=== PATIENT | female | born 1940 | race Caucasian/White ===

== ENCOUNTER → 2017-07-27 | Outpatient (CLI) | payer MEDICARE, OTHER ==
[~2017-07-27] MED LIST: ACET500 PO; AEROECLIPSE II1 EACH MC; ALBU90I INH; ALBU90OI INH; ALLEGRA ALLERG180 MG; AMLO10 PO; AMLO5 PO; AZAT50; BETA.05TCA; CALC.25 PO; CEPH500; CEPH500 PO; CIPR250 PO; CLIN300 PO; CLOB.05TO; Cyclobenzaprine5 MG PO; DIAZ5 PO; DICY20 PO; DIPHTC TOP; DOCU100 PO; DOXE10 PO; DOXY100 PO; ENAHYD PO; ENAL5; FURO40 PO; GUAI120S1 PO; HYDACE5 PO; HYDHCL25 PO; HYDR1TAB94 PO; LEVFLO500 PO; LISI20; LORA10ER PO; MECL25 PO; MELA3 PO; MELATONIN5 M1; MERIBIN5 MG; METR500 PO; Melatonin5 M1 PO; Micro-K10 MEQ PO; NITR100CA PO; NYST100SU MT; Namenda10 MG; Norco 5-325 Ta1 EACH PO; OLME20; OMEP20ER; OMEP20ER PO; OXYACE5T PO; POTCHL10ER PO; PRAM.125 PO; PRAM.5 PO; PRED20 PO; Prednisone20 MG PO; Prilosec Otc20 MG PO; QUET25 PO; RAME8; RESTFUL LEGS PO; RIVA1.5 TOP; TRAM50 PO; TRAZ50 PO; UNKNOWN BP MED; VICODIN 5-3001 EACH PO; Ventolin Soln3 ML INH; Vibramycin100 MG PO; WARF1; WARF2 PO; WARF4 PO; WARF5 PO; WARF6; Zithromax250 MG PO
[2017-07-27 17:53] LABS: Albumin, Blood 3.4 g/dL (3.4-5.0); Albumin/Globulin Ratio 0.9 (0.8-1.8); Bilirubin, Total 0.3 mg/dL (0.1-1.0); Bun/Creatinine Ratio 17.4 (12.0-20.0); Calcium, Blood 8.8 mg/dL (8.5-10.1); Creatinine, Blood 1.61 mg/dL (0.40-1.00); Globulin, Blood 3.6 g/dL (2.2-4.0); Potassium, Blood 4.2 mmol/L (3.5-5.5)
== END ==
LOC: LAB EV 17:36
PROVIDERS: Internal Medicine
DX: R05 Cough (principal)
CPT/HCPCS: 80053; 83880

== ENCOUNTER 2017-11-05 17:45 | Emergency (ER) | payer OTHER ==
[~2017-11-05] VITALS: Ht 162.6 cm; Wt 98.4 kg
[~2017-11-05 17:45] MED LIST changes: -AZAT50; -CALC.25 PO; -Vibramycin100 MG PO
[2017-11-05] MEDS ORDERED: CALC.25 PO (20:45)
[2017-11-05] MEDS ORDERED: AZAT50 (20:46)
[2017-11-05] MEDS ORDERED: PRED20 PO (20:47)
[2017-11-05] MEDS ORDERED: HYDR1TAB94 PO (20:48)
[2017-11-05] MEDS ORDERED: Vibramycin100 MG PO (21:21)
== END 2017-11-05 21:36 | disposition home or self-care (01) ==
LOC: ER 17:45
DX: L03.115 Cellulitis of right lower limb (principal); L40.9 Psoriasis, unspecified; I87.2 Venous insufficiency (chronic) (peripheral); Z88.0 Allergy status to penicillin; Z88.8 Allergy status to other drugs, medicaments and biological substances; Z88.2 Allergy status to sulfonamides; Z88.1 Allergy status to other antibiotic agents; Z79.899 Other long term (current) drug therapy; Z79.01 Long term (current) use of anticoagulants; Z79.52 Long term (current) use of systemic steroids; F03.90 Unspecified dementia, unspecified severity, without behavioral disturbance, psychotic disturbance, mood disturbance, and anxiety; I10 Essential (primary) hypertension; Z87.891 Personal history of nicotine dependence
CPT/HCPCS: 73610; 99283

== ENCOUNTER 2017-12-19 16:03 | Emergency (ER) | payer OTHER ==
[~2017-12-19] VITALS: Ht 162.6 cm; Wt 97.1 kg
[~2017-12-19 16:03] MED LIST changes: +AZAT50; +CALC.25 PO; +Vibramycin100 MG PO
[2017-12-19 16:36] LABS: International Normalized Ratio 1.8; Prothrombin Time Results 19.1 Sec (9.7-11.5)
== END 2017-12-19 18:11 | disposition home or self-care (01) ==
LOC: ER 16:03
PROVIDERS: Emergency Medicine
DX: S09.90XA Unspecified injury of head, initial encounter (principal); S61.511A Laceration without foreign body of right wrist, initial encounter; S30.0XXA Contusion of lower back and pelvis, initial encounter; W01.198A Fall on same level from slipping, tripping and stumbling with subsequent striking against other object, initial encounter; Z88.0 Allergy status to penicillin; Z88.8 Allergy status to other drugs, medicaments and biological substances; Z88.2 Allergy status to sulfonamides; Z88.1 Allergy status to other antibiotic agents; Z79.899 Other long term (current) drug therapy; Z79.01 Long term (current) use of anticoagulants; Z79.52 Long term (current) use of systemic steroids; F03.90 Unspecified dementia, unspecified severity, without behavioral disturbance, psychotic disturbance, mood disturbance, and anxiety; I12.9 Hypertensive chronic kidney disease with stage 1 through stage 4 chronic kidney disease, or unspecified chronic kidney disease; N18.9 Chronic kidney disease, unspecified; Z87.891 Personal history of nicotine dependence
CPT/HCPCS: 36415; 70450; 71046; 72072; 72125; 85610; 90714; 99284

== ENCOUNTER → 2018-03-26 | Outpatient (CLI) | payer OTHER | END | disposition home or self-care (01) | LOC: LAB 09:35 → LAB SHORT 09:35 | DX: L08.0 Pyoderma (principal) | CPT/HCPCS: 87070; 87077; 87147; 87186; 87205 ==

== ENCOUNTER 2018-08-26 11:37 | Inpatient (IN) | payer OTHER ==
[~2018-08-26] VITALS: Ht 162.6 cm; Wt 89.0 kg
[~2018-08-26 11:37] MED LIST changes: -MERIBIN5 MG; +MERIBIN5 MG PO
[2018-08-26 12:42] LABS: Source, Urine Clean Catch
[2018-08-26 12:56] LABS: Appearance, Urine Hazy (Clear); Bilirubin, Urine Neg (Neg); Blood, Urine 1+ (Neg); Color, Urine Yellow (P-Yellow); Glucose Qualitative, Urine Neg (Neg); Ketones, Urine Neg (Neg); Leukocyte Esterase, Urine 2+ (Neg); Nitrite, Urine Neg (Neg); Protein, Urine 1+ (Neg); Urobilinogen, Urine NORM (Normal)
[2018-08-26 13:12] LABS: Bacteria Many /hpf; Squamous Epithelial Cells Many /hpf (Few)
[2018-08-26 13:17] LABS: Hematocrit 29.4 % (33.0-51.0); Hemoglobin 9.7 g/dL (11.5-16.0); Mean Corpuscular Volume 94 fL (80-100); Mean Platelet Volume 10.9 fL (9.1-12.4); RDW Coefficient Variation 13.2 % (11.7-14.2); RDW Standard Deviation 44.8 fL (35.1-46.3); Red Blood Cell Count 3.13 M/mm3 (3.80-5.20); White Blood Cell Count 4.02 K/mm3 (4.00-11.30)
[2018-08-26 13:29] LABS: Prothrombin Time Results 61.5 Sec (9.7-11.5)
[2018-08-26 13:36] LABS: Platelet Count 40 K/mm3 (150-400)
[2018-08-26 13:42] LABS: BASOPHILS PERCENT MAN 0 % (0-2); EOSINOPHILS ABSOLUTE MAN 0.12 K/mm3 (0.00-0.68); EOSINOPHILS PERCENT MAN 3 % (0-6); LYMPHOCYTES PERCENT MAN 5 % (21-46); MONOCYTES PERCENT MAN 0 % (4-13); NEUTROPHILS ABSOLUTE MAN 3.69 K/mm3 (1.96-9.15); SEG NEUTROPHILS PERCENT MAN 92 % (41-73); TOTAL CELLS COUNTED 100
[2018-08-26 13:47] LABS: Albumin, Blood 3.1 g/dL (3.4-5.0); Albumin/Globulin Ratio 0.8 (0.8-1.8); Bilirubin, Total 0.9 mg/dL (0.1-1.0); Bun/Creatinine Ratio 13.6 (12.0-20.0); Calcium, Blood 8.6 mg/dL (8.5-10.1); Creatinine, Blood 1.99 mg/dL (0.40-1.00); Globulin, Blood 3.8 g/dL (2.2-4.0); Potassium, Blood 3.4 mmol/L (3.5-5.5); Total Protein, Blood 6.9 g/dL (6.4-8.2)
[2018-08-26 13:55] LABS: International Normalized Ratio 6.92
[2018-08-26 16:47] LABS: Percent Saturation 39.5 % (15.0-50.0)
[2018-08-26] MEDS ORDERED: WARF4 PO (16:57)
[2018-08-26] MEDS ORDERED: Vitamin D2000 UNIT PO (17:01)
[2018-08-26] MEDS ORDERED: MEMA10 PO (17:02)
[2018-08-26] MEDS ORDERED: METTREX2.5 PO (17:04)
[2018-08-26] MEDS ORDERED: Mirapex0.5 MG PO (19:46)
[2018-08-26] MEDS ORDERED: WARF2 PO (19:56)
[2018-08-27 05:06] LABS: BASOPHILS ABSOLUTE AUTO 0.01 K/mm3 (0.00-0.23); BASOPHILS PERCENT AUTO 0 % (0-2); EOSINOPHILS ABSOLUTE AUTO 0.25 K/mm3 (0.00-0.68); EOSINOPHILS PERCENT AUTO 8 % (0-6); Hematocrit 27.2 % (33.0-51.0); Hemoglobin 8.7 g/dL (11.5-16.0); IMMATURE GRAN ABSOLUTE AUTO 0.01 K/mm3 (0.00-0.10); IMMATURE GRAN PERCENT AUTO 0 % (0-1); LYMPHOCYTES ABSOLUTE AUTO 0.41 K/mm3 (0.84-5.20); LYMPHOCYTES PERCENT AUTO 13 % (21-46); MONOCYTES ABSOLUTE AUTO 0.04 K/mm3 (0.16-1.47); MONOCYTES PERCENT AUTO 1 % (4-13); Mean Corpuscular HGB 30.9 pg (26.0-34.0); Mean Platelet Volume 10.9 fL (9.1-12.4); NEUTROPHILS ABSOLUTE AUTO 2.36 K/mm3 (1.96-9.15); NEUTROPHILS PERCENT AUTO 77 % (41-73); RDW Coefficient Variation 13.2 % (11.7-14.2); RDW Standard Deviation 46.1 fL (35.1-46.3); Red Blood Cell Count 2.82 M/mm3 (3.80-5.20); White Blood Cell Count 3.08 K/mm3 (4.00-11.30)
[2018-08-27 05:08] LABS: Mean Corpuscular Volume 97 fL (80-100)
[2018-08-27 05:09] LABS: Platelet Count 43 K/mm3 (150-400)
[2018-08-27 05:19] LABS: Prothrombin Time Results 72.8 Sec (9.7-11.5)
[2018-08-27 05:29] LABS: International Normalized Ratio 8.33
[2018-08-27 05:34] LABS: Bun/Creatinine Ratio 14.7 (12.0-20.0); Creatinine, Blood 1.7 mg/dL (0.40-1.00); Potassium, Blood 3.5 mmol/L (3.5-5.5)
--- NOTE | 2018-08-27 06:30 | NUR ---
SHIFT SUMMARY: PT A&O TO SELF, PERSON, PLACE. ABLE TO FOLLOW DIRECTIONS AND ANSWER QUESTIONS. PHOTOS DOCUMENTED ON SEVERAL LARGE BRUISES (R ARM, R MID-BACK, BILAT KNEES) AND BILATERAL ABRASIONS TO SHINS. PT REPORTS THESE WERE SUSTAINED DURING MULT FALLS AT HOME. PT DENIES PAIN, DENIES SOB. ON BASELINE O2 OF 2L VIA NC. SLEEPS THROUGH THE NIGHT. TWO CRITICAL LABS RECIEVED WITH THIS AM LABS: INR OF 8.33 AND PLATELET COUNT OF 43,000. ORDERS IN PLACE COVER THE NEEDS OF THESE CRITICAL VALUES. NO OTHER ACUTE CHANGES TO REPORT. WILL CONT TO MONITOR AND PROVIDE CARE UNTIL PRESUMED BY ONCOMING RN.
--- NOTE | 2018-08-27 17:30 | NUR ---
DRESSING CHANGE GAUZE AND COBAN DRESSING ON RIGHT LOWER LEG CHANGED BY NURSING STUDENTS RAHUL AND MARYSOL, UNDER SUPERVISION OF FAMILIA MOON.
--- NOTE | 2018-08-27 17:53 | NUR ---
SHIFT SUMMARY THE PATIENT PRESENTED THIS MORNING WITH VITALS WNL, A&O TO SELF AND WITH LUNGS THAT WERE CLEAR, BUT DIM AT THE BASES. THE PATIENT RECEIVED VITAM K TO TADAY FOR HER INR LEVEL. THE PATIENT HAD FAMILY IN THE ROOM MOST OF THE SHIFT, BUT DID RECEIVE A SHOWER AND HAD HER DRESSING ON HER LOWER LEGS CHANGED. THE PATIENT HAS BEEN UP TO HER CHAIR SEVERAL TIMES AND IS EATING DINNER THERE AT THIS TIME. WILL CONTINUE TO MONITOR.
--- NOTE | 2018-08-27 18:50 | NUR ---
Mrs. Dickinson was alone in room and sitting up in chair. She smiles easily, but had trouble tracking conversation. She appears pleasantly confused. She said little, but held my hand tightly. We prayed together for comfort and strength. I will remain available to pt and family.
[2018-08-28 05:41] LABS: BASOPHILS ABSOLUTE AUTO 0.01 K/mm3 (0.00-0.23); BASOPHILS PERCENT AUTO 0 % (0-2); EOSINOPHILS ABSOLUTE AUTO 0.25 K/mm3 (0.00-0.68); EOSINOPHILS PERCENT AUTO 9 % (0-6); Hematocrit 28.6 % (33.0-51.0); Hemoglobin 9.2 g/dL (11.5-16.0); IMMATURE GRAN ABSOLUTE AUTO 0.02 K/mm3 (0.00-0.10); IMMATURE GRAN PERCENT AUTO 1 % (0-1); LYMPHOCYTES ABSOLUTE AUTO 0.45 K/mm3 (0.84-5.20); LYMPHOCYTES PERCENT AUTO 16 % (21-46); MONOCYTES ABSOLUTE AUTO 0.04 K/mm3 (0.16-1.47); MONOCYTES PERCENT AUTO 1 % (4-13); Mean Corpuscular HGB 30.6 pg (26.0-34.0); Mean Corpuscular HGB Conc 32.2 g/dL (31.5-36.5); Mean Corpuscular Volume 95 fL (80-100); Mean Platelet Volume 10.2 fL (9.1-12.4); NEUTROPHILS ABSOLUTE AUTO 2.09 K/mm3 (1.96-9.15); NEUTROPHILS PERCENT AUTO 73 % (41-73); Platelet Count 59 K/mm3 (150-400); RDW Coefficient Variation 13.2 % (11.7-14.2); Red Blood Cell Count 3.01 M/mm3 (3.80-5.20); White Blood Cell Count 2.86 K/mm3 (4.00-11.30)
[2018-08-28 05:54] LABS: International Normalized Ratio 1.83; Prothrombin Time Results 18.4 Sec (9.7-11.5)
[2018-08-28 06:12] LABS: Albumin, Blood 2.9 g/dL (3.4-5.0); Anion Gap 8 mmol/L (6-16); Blood Urea Nitrogen 27 mg/dL (8-24); Bun/Creatinine Ratio 16.1 (12.0-20.0); CO2, Blood 28 mmol/L (21-32); Calcium, Blood 8.7 mg/dL (8.5-10.1); Chloride, Blood 107 mmol/L (98-108); Creatinine, Blood 1.68 mg/dL (0.40-1.00); Glomerular Filtration Rate 31 (60-); Glucose, Blood 93 mg/dL (70-99); Phosphorus, Blood 2.8 mg/dL (2.5-4.9); Potassium, Blood 3.7 mmol/L (3.5-5.5); Sodium, Blood 143 mmol/L (136-145)
--- NOTE | 2018-08-28 06:46 | NUR ---
SHIFT SUMMARY: NO ACUTE CHANGES THIS SHIFT. PT ABLE TO REST WELL THROUGH THE NIGHT. MAGIC MOUTHWASH ADMINISTERED 2X THIS SHIFT. MOMENTS OF BLOODY SPUTUM AND VISULAIZING CLOT AT BACK OF THROAT. AIRWAY IS PATENT STILL. IN DOWN TO 1.83 THIS AM. WILL CONTO TO MONITOR AND PROVIDE CARE UNTIL PRESUMED BY ONCOMING RN.
--- NOTE | 2018-08-28 17:41 | NUR ---
SHIFT SUMMARY THE PATIENT PRESENTED THIS AM WITH VITALS WNL, A&O TO SELF AND SURROUNDINGS, AND WITH LUNGS THAT WERE DIM THROUGHPOT. THE PATIENT'S FAMILY WAS WITH THE PATIENT MOST OF THE SHIFT. THE PATIENT IS UP TO THE BEDSIDE COMMODE WITH STAND BY ASSIST. THE PATIENT IS UP TO HER CHAIR WATCHING TV AT THIS TIME, WILL CONTINUE TO MONITOR.
[2018-08-29 05:15] LABS: BASOPHILS PERCENT AUTO 0 % (0-2); EOSINOPHILS ABSOLUTE AUTO 0.16 K/mm3 (0.00-0.68); EOSINOPHILS PERCENT AUTO 10 % (0-6); Hematocrit 26.4 % (33.0-51.0); Hemoglobin 8.5 g/dL (11.5-16.0); IMMATURE GRAN ABSOLUTE AUTO 0.01 K/mm3 (0.00-0.10); IMMATURE GRAN PERCENT AUTO 1 % (0-1); LYMPHOCYTES PERCENT AUTO 36 % (21-46); MONOCYTES ABSOLUTE AUTO 0.05 K/mm3 (0.16-1.47); MONOCYTES PERCENT AUTO 3 % (4-13); Mean Corpuscular HGB Conc 32.2 g/dL (31.5-36.5); Mean Corpuscular Volume 96 fL (80-100); Mean Platelet Volume 10.4 fL (9.1-12.4); NEUTROPHILS ABSOLUTE AUTO 0.87 K/mm3 (1.96-9.15); NEUTROPHILS PERCENT AUTO 51 % (41-73); Platelet Count 66 K/mm3 (150-400); RDW Coefficient Variation 13.1 % (11.7-14.2); RDW Standard Deviation 44.9 fL (35.1-46.3); Red Blood Cell Count 2.74 M/mm3 (3.80-5.20); White Blood Cell Count 1.69 K/mm3 (4.00-11.30)
[2018-08-29 05:52] LABS: Albumin, Blood 2.6 g/dL (3.4-5.0); Anion Gap 8 mmol/L (6-16); Blood Urea Nitrogen 25 mg/dL (8-24); Bun/Creatinine Ratio 15.2 (12.0-20.0); CO2, Blood 26 mmol/L (21-32); Calcium, Blood 8.2 mg/dL (8.5-10.1); Chloride, Blood 107 mmol/L (98-108); Creatinine, Blood 1.65 mg/dL (0.40-1.00); Glomerular Filtration Rate 32 (60-); Glucose, Blood 89 mg/dL (70-99); Phosphorus, Blood 2.3 mg/dL (2.5-4.9); Potassium, Blood 3.6 mmol/L (3.5-5.5); Sodium, Blood 141 mmol/L (136-145)
[2018-08-29 05:55] LABS: International Normalized Ratio 1.33; Prothrombin Time Results 13.7 Sec (9.7-11.5)
--- NOTE | 2018-08-29 17:17 | NUR ---
PT HAS BEEN AOX3 AND COOPERATIVE OF ALL CARE. PT DID WELL TODAY WALKING TO RESTROOM WITH WALKER AND GATEBELT ONE PERSON. PT HAS BEEN RESTING IN HER BED MOST OF THE DAY. PT DID SPEND SOMETIME TODAY UP IN HER CHAIR. WILL CONTINUE TO MONITOR.
--- NOTE | 2018-08-30 04:53 | NUR ---
SHIFT SUMMARY PT ADMITTED FOR A UTI, SINCE RESOLVED. SHE IS A&O X4, ON ROOM AIR, AND HAS NO IV ACCESS. SHE HAS A HX OF CKD, BLE EDEMA, AND FALLS. SHE HAS BRUISES TO BOTH KNEES. I DID NOTE THAT A PRESSURE ULCER WAS CHARTED BUT I COULD NOT FIND THE PHOTOGRAPH IN THE PT'S CHART. I DID PHOTOGRAPH IT AND COVER THE WOUND WITH MEPILEX. PT IS A 2-PERSON ASSIST W/FWW, TAKES HER PILLS WHOLE WITH WATER. SHE HAS BEEN RESTARTED ON COUMADIN HER INR HAS CORRECTED FROM SUPRATHERAPUTIC TO SUBTHERAPUTIC. HER LAST BM WAS 08/27. SHE IS EXPECTED TO DC W/HOME HEALTH SERVICES WITH AN INCREASE IN CAREGIVER HOURS. SHE MAY NEED TO SEE A VASCULAR SURGEON REGARDING HER ISSUES WITH DVT'S AND FREQUENT FALLS WHILE ON COUMADIN. SHE FOLLOWED INSTRUCTIONS WELL THROUGHOUT SHIFT.
[2018-08-30 05:24] LABS: BASOPHILS ABSOLUTE AUTO 0.01 K/mm3 (0.00-0.23); BASOPHILS PERCENT AUTO 1 % (0-2); EOSINOPHILS ABSOLUTE AUTO 0.16 K/mm3 (0.00-0.68); EOSINOPHILS PERCENT AUTO 10 % (0-6); Hematocrit 27.5 % (33.0-51.0); Hemoglobin 8.7 g/dL (11.5-16.0); IMMATURE GRAN ABSOLUTE AUTO 0.01 K/mm3 (0.00-0.10); IMMATURE GRAN PERCENT AUTO 1 % (0-1); LYMPHOCYTES ABSOLUTE AUTO 0.62 K/mm3 (0.84-5.20); LYMPHOCYTES PERCENT AUTO 38 % (21-46); MONOCYTES ABSOLUTE AUTO 0.08 K/mm3 (0.16-1.47); MONOCYTES PERCENT AUTO 5 % (4-13); Mean Corpuscular HGB 30.6 pg (26.0-34.0); Mean Corpuscular HGB Conc 31.6 g/dL (31.5-36.5); Mean Corpuscular Volume 97 fL (80-100); Mean Platelet Volume 9.9 fL (9.1-12.4); NEUTROPHILS ABSOLUTE AUTO 0.74 K/mm3 (1.96-9.15); NEUTROPHILS PERCENT AUTO 46 % (41-73); Platelet Count 70 K/mm3 (150-400); RDW Coefficient Variation 13.2 % (11.7-14.2); RDW Standard Deviation 45.1 fL (35.1-46.3); Red Blood Cell Count 2.84 M/mm3 (3.80-5.20); White Blood Cell Count 1.62 K/mm3 (4.00-11.30)
[2018-08-30 05:37] LABS: International Normalized Ratio 1.37; Prothrombin Time Results 14.1 Sec (9.7-11.5)
[2018-08-30 05:46] LABS: Albumin, Blood 2.9 g/dL (3.4-5.0); Anion Gap 8 mmol/L (6-16); Blood Urea Nitrogen 25 mg/dL (8-24); Bun/Creatinine Ratio 14.9 (12.0-20.0); CO2, Blood 28 mmol/L (21-32); Calcium, Blood 8.4 mg/dL (8.5-10.1); Chloride, Blood 106 mmol/L (98-108); Creatinine, Blood 1.68 mg/dL (0.40-1.00); Glomerular Filtration Rate 31 (60-); Glucose, Blood 91 mg/dL (70-99); Phosphorus, Blood 2.5 mg/dL (2.5-4.9); Potassium, Blood 3.9 mmol/L (3.5-5.5); Sodium, Blood 142 mmol/L (136-145)
--- NOTE | 2018-08-31 04:28 | NUR ---
SHIFT SUMMARY PT AND OT IS WORKING WITH THIS PT. SORES (LOOK SIMILAR TO LARGE WHITE BLISTERS) HAVE APPEARED IN HER MOUTH ON IT'S ROOF AND THE INSIDES OF THE CHEEKS. 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 SHE IS ON 2 LPM O2 VIA NC, BUT SHE PERIODICALLY REMOVES IT. IT IS IMPORTANT TO WATCH HER PT AND INR LABS, WELL HER WBC, RBC, AND PLATELET COUNT. A CONSULT NEEDS TO BE CALLED IN TO DR. LAGOS, SO THAT HE CAN EVALUATE HER LABS AND THE REASONING BEHIND THEIR VALUES. SHE HAS AN ORDER FOR NO IV ACCESS. WE HAVE BEEN PRACTICING A TWO PERSON ASSIST WITH THIS PT SHE IS A HIGH FALL RISK CAN BECOME CONFUSED. WE USE A FWW W/GAIT BELT TO TRANSFER THIS PT BETWEEN BED/CHAIR/BATHROOM.
[2018-08-31 05:10] LABS: BASOPHILS ABSOLUTE AUTO 0.01 K/mm3 (0.00-0.23); BASOPHILS PERCENT AUTO 1 % (0-2); EOSINOPHILS ABSOLUTE AUTO 0.27 K/mm3 (0.00-0.68); EOSINOPHILS PERCENT AUTO 13 % (0-6); Hematocrit 25.3 % (33.0-51.0); Hemoglobin 8.3 g/dL (11.5-16.0); IMMATURE GRAN ABSOLUTE AUTO 0.01 K/mm3 (0.00-0.10); IMMATURE GRAN PERCENT AUTO 1 % (0-1); LYMPHOCYTES ABSOLUTE AUTO 0.56 K/mm3 (0.84-5.20); LYMPHOCYTES PERCENT AUTO 27 % (21-46); MONOCYTES ABSOLUTE AUTO 0.13 K/mm3 (0.16-1.47); MONOCYTES PERCENT AUTO 6 % (4-13); Mean Corpuscular HGB 31.4 pg (26.0-34.0); Mean Corpuscular HGB Conc 32.8 g/dL (31.5-36.5); Mean Corpuscular Volume 96 fL (80-100); Mean Platelet Volume 10.1 fL (9.1-12.4); NEUTROPHILS PERCENT AUTO 53 % (41-73); Platelet Count 63 K/mm3 (150-400); RDW Coefficient Variation 13.2 % (11.7-14.2); RDW Standard Deviation 44.9 fL (35.1-46.3); Red Blood Cell Count 2.64 M/mm3 (3.80-5.20); White Blood Cell Count 2.08 K/mm3 (4.00-11.30)
[2018-08-31 05:22] LABS: International Normalized Ratio 1.65; Prothrombin Time Results 16.7 Sec (9.7-11.5)
[2018-08-31 05:53] LABS: Albumin, Blood 2.7 g/dL (3.4-5.0); Anion Gap 7 mmol/L (6-16); Blood Urea Nitrogen 25 mg/dL (8-24); Bun/Creatinine Ratio 15.7 (12.0-20.0); CO2, Blood 30 mmol/L (21-32); Calcium, Blood 8.4 mg/dL (8.5-10.1); Chloride, Blood 106 mmol/L (98-108); Creatinine, Blood 1.59 mg/dL (0.40-1.00); Glomerular Filtration Rate 33 (60-); Glucose, Blood 108 mg/dL (70-99); Phosphorus, Blood 2.5 mg/dL (2.5-4.9); Potassium, Blood 4.2 mmol/L (3.5-5.5); Sodium, Blood 143 mmol/L (136-145)
--- NOTE | 2018-08-31 06:00 | NUR ---
PT STATUS MORNING LABS SHOW THAT WBC COUNT ON IS NOW 2.08, UP FROM YESTERDAY'S 1.62 (4.00-11.30 WNL), RBC IS 2.64, DOWN FROM YESTERDAY'S 2.84 (3.80-5.20 WNL), AND PLATELET COUNT IS 63, DOWN FROM YESTERDAY 63 (150-400 WNL). ALSO IMPORTANT TO NOTE THAT HGB IS 8.3 THIS MORNING, DOWN FROM YESTERDAY'S 8.7 (11.5-16.0 WNL).
[2018-08-31] MEDS ORDERED: FOLI1 PO (09:46)
[2018-08-31] MEDS ORDERED: NYST237S MT (09:47)
--- NOTE | 2018-08-31 11:15 | NUR ---
DISCHARGE DISCHARGE MEDICATION AND INSTRUCTIONS EXPLAINED TO PATIENT AND PATIENT'S CAREGIVER. THEY STATED UNDERSTANDING. PATIENT DID NOT HAVE IV. BELONGINGS WITH PATIENT. PATIENT TRANSFERED TO PRIVATE VEHICLE VIA WHEELCHAIR.
== END 2018-08-31 11:31 | disposition home or self-care (01) | DRG 683 ==
LOC: ER 11:37 → MEDS 16:21 → ENPENDDIS 08-31 09:44 → MEDS 08-31 11:31
PROVIDERS: Emergency Medicine; Internal Medicine; ADMIT Family Medicine
DX: N17.9 Acute kidney failure, unspecified (principal); D61.818 Other pancytopenia; Z79.01 Long term (current) use of anticoagulants; F03.90 Unspecified dementia, unspecified severity, without behavioral disturbance, psychotic disturbance, mood disturbance, and anxiety; Z87.891 Personal history of nicotine dependence; Z86.718 Personal history of other venous thrombosis and embolism; E87.6 Hypokalemia; D69.6 Thrombocytopenia, unspecified; D63.1 Anemia in chronic kidney disease; R29.6 Repeated falls; E86.0 Dehydration; E53.8 Deficiency of other specified B group vitamins; I83.019 Varicose veins of right lower extremity with ulcer of unspecified site; J44.9 Chronic obstructive pulmonary disease, unspecified; N18.3 Chronic kidney disease, stage 3 (moderate); W19.XXXA Unspecified fall, initial encounter; Y92.9 Unspecified place or not applicable; T45.1X5A Adverse effect of antineoplastic and immunosuppressive drugs, initial encounter; K12.1 Other forms of stomatitis; I12.9 Hypertensive chronic kidney disease with stage 1 through stage 4 chronic kidney disease, or unspecified chronic kidney disease; S80.01XA Contusion of right knee, initial encounter; S80.02XA Contusion of left knee, initial encounter
CPT/HCPCS: 36415; 70450; 71046; 80048; 80053; 80069; 81001; 82607; 82728; 82746; 83540; 83550; 85025; 85610; 87086; 93005; 93010; 96365; 97110; 97116; 97162; 97165; 97530; 97535; 99285-25; J0696; J7030

== ENCOUNTER 2019-04-01 11:05 | Emergency (ER) | payer OTHER ==
[~2019-04-01] VITALS: Ht 162.6 cm; Wt 90.7 kg
[~2019-04-01 11:05] MED LIST changes: +FOLI1 PO; +MEMA10 PO; +METTREX2.5 PO; +NYST237S MT; +OMEPRAZOLE20 MG PO; -Prilosec Otc20 MG PO; +THERA-D2000 UNIT PO
== END 2019-04-01 13:59 | disposition home or self-care (01) ==
LOC: ER 11:05
DX: T44.7X1A Poisoning by beta-adrenoreceptor antagonists, accidental (unintentional), initial encounter (principal); T38.3X1A Poisoning by insulin and oral hypoglycemic [antidiabetic] drugs, accidental (unintentional), initial encounter; F03.90 Unspecified dementia, unspecified severity, without behavioral disturbance, psychotic disturbance, mood disturbance, and anxiety; Z86.711 Personal history of pulmonary embolism; I12.9 Hypertensive chronic kidney disease with stage 1 through stage 4 chronic kidney disease, or unspecified chronic kidney disease; N18.9 Chronic kidney disease, unspecified; F41.9 Anxiety disorder, unspecified; Z87.891 Personal history of nicotine dependence; Z88.0 Allergy status to penicillin; Z88.1 Allergy status to other antibiotic agents; Z88.2 Allergy status to sulfonamides; Z88.8 Allergy status to other drugs, medicaments and biological substances; Z79.899 Other long term (current) drug therapy; Z79.01 Long term (current) use of anticoagulants
CPT/HCPCS: 99283

== ENCOUNTER 2019-05-08 13:45 | Inpatient (IN) | payer OTHER ==
[~2019-05-08] VITALS: Ht 152.4 cm; Wt 81.9 kg
[2019-05-08 15:23] LABS: BASOPHILS ABSOLUTE AUTO 0.06 K/mm3 (0.00-0.23); BASOPHILS PERCENT AUTO 1 % (0-2); EOSINOPHILS ABSOLUTE AUTO 0.21 K/mm3 (0.00-0.68); EOSINOPHILS PERCENT AUTO 4 % (0-6); Hematocrit 39.3 % (33.0-51.0); Hemoglobin 12.6 g/dL (11.5-16.0); IMMATURE GRAN ABSOLUTE AUTO 0.01 K/mm3 (0.00-0.10); IMMATURE GRAN PERCENT AUTO 0 % (0-1); LYMPHOCYTES ABSOLUTE AUTO 0.69 K/mm3 (0.84-5.20); LYMPHOCYTES PERCENT AUTO 12 % (21-46); MONOCYTES ABSOLUTE AUTO 0.61 K/mm3 (0.16-1.47); MONOCYTES PERCENT AUTO 10 % (4-13); Mean Corpuscular HGB 31.4 pg (26.0-34.0); Mean Corpuscular HGB Conc 32.1 g/dL (31.5-36.5); Mean Corpuscular Volume 98 fL (80-100); Mean Platelet Volume 11.5 fL (9.1-12.4); NEUTROPHILS ABSOLUTE AUTO 4.42 K/mm3 (1.96-9.15); NEUTROPHILS PERCENT AUTO 74 % (41-73); Platelet Count 165 K/mm3 (150-400); RDW Coefficient Variation 12.6 % (11.7-14.2); RDW Standard Deviation 45.2 fL (35.1-46.3); Red Blood Cell Count 4.01 M/mm3 (3.80-5.20)
[2019-05-08 15:36] LABS: Albumin, Blood 3.3 g/dL (3.4-5.0); Albumin/Globulin Ratio 0.9 (0.8-1.8); Bilirubin, Total 0.5 mg/dL (0.1-1.0); Bun/Creatinine Ratio 14.4 (12.0-20.0); Calcium, Blood 9.1 mg/dL (8.5-10.1); Creatinine, Blood 1.81 mg/dL (0.40-1.00); Globulin, Blood 3.7 g/dL (2.2-4.0); Potassium, Blood 3.9 mmol/L (3.5-5.5)
[2019-05-08 15:37] LABS: International Normalized Ratio 2.91
--- NOTE | 2019-05-08 16:19 | NUR ---
Initial Visit: ED Palliative Care Consult for Advanced Care Planning. Spoke with Dr Wells and discussed case. Still waiting on futher test results but at this point Pt may not be admitted to hospital. Pt is resting on gurney upon arrival. Pt's caregiver Octavia is present during visit. Pt is A&OX2. Pt is unable to verbalize appropriate reason for hospital visit and unable to verbalize current year. Pt denies pain at this time. Octavia reports Pt lives at home with her . Octavia cares for Pt 35 1/2 hours a week. Octavia reports Pt's Jacob is currently in route from hunting and will be here in approximately 1 1/2 hours. Educated Octavia on disease process and the importance for Jacob to consider a higher level of care. Gave Octavia palliative care contact information. Instructed Octavia palliative care will attempt to visit when is present. Instructed Octavia the Dr Wells is waiting on test results before decicing plan of care of if Pt well go back home. Spoke with ED communications planner Christine and discussed case. Christine reports she will plan to visit when Pt's is present. Palliative Care will remain available.
[2019-05-08] MEDS ORDERED: Amlodipine Bes2.5 MG PO (17:48)
[2019-05-08] MEDS ORDERED: IRON150C PO (17:48)
[2019-05-08] MEDS ORDERED: AMLO10 PO (17:49)
[2019-05-08] MEDS ORDERED: Halobetasol Pro15 GM TOP (17:50)
[2019-05-08] MEDS ORDERED: LORCET 5-325 M1 EACH PO (17:50)
[2019-05-08] MEDS ORDERED: Nitrofurantoin100 M1 PO (18:18)
[2019-05-08] MEDS ORDERED: GABA100 PO (18:31)
[2019-05-08] MEDS ORDERED: Zantac150 MG PO (18:32)
[2019-05-08] MEDS ORDERED: PRAM.5 PO (23:06)
--- NOTE | 2019-05-09 04:41 | NUR ---
SHIFT SUMMARY RECEIVED REPORT FROM ADRIÁN MOON, ED. ARRIVED TO MEDICAL FLOOR @ 2150 VIA STRETCHER. FAMILY/PT ORIENTED TO ROOM AND CALL SYSTEM. INTAKE COMPLETE. PT HAS A CAREGIVE; FAMILY PLACED HER INFORMATION ON WHITEBOARD.ALERT, RESPONDS TO VERBAL STIMULI. AWARE OF AND GRANDDAUGHTER. ANSWERS QUESTIONS WITH ONE WORD ANSWERS. VSS/AFEBRILE. APPEARED TO REST MUCH OF SHIFT. NO ACUTE CHANGES OVERNIGHT. BED IN LOWEST POSITION. ALARM ON. CALL LIGHT WITHIN REACH. WCTM. REPORT TO ONCCRICKET MOON.
[2019-05-09 05:26] LABS: BASOPHILS ABSOLUTE AUTO 0.05 K/mm3 (0.00-0.23); BASOPHILS PERCENT AUTO 1 % (0-2); EOSINOPHILS ABSOLUTE AUTO 0.27 K/mm3 (0.00-0.68); EOSINOPHILS PERCENT AUTO 6 % (0-6); Hematocrit 34.7 % (33.0-51.0); IMMATURE GRAN ABSOLUTE AUTO 0.01 K/mm3 (0.00-0.10); IMMATURE GRAN PERCENT AUTO 0 % (0-1); LYMPHOCYTES ABSOLUTE AUTO 0.69 K/mm3 (0.84-5.20); LYMPHOCYTES PERCENT AUTO 16 % (21-46); MONOCYTES ABSOLUTE AUTO 0.53 K/mm3 (0.16-1.47); MONOCYTES PERCENT AUTO 12 % (4-13); Mean Corpuscular HGB 30.9 pg (26.0-34.0); Mean Corpuscular HGB Conc 31.7 g/dL (31.5-36.5); Mean Corpuscular Volume 98 fL (80-100); Mean Platelet Volume 10.8 fL (9.1-12.4); NEUTROPHILS ABSOLUTE AUTO 2.75 K/mm3 (1.96-9.15); NEUTROPHILS PERCENT AUTO 64 % (41-73); Platelet Count 141 K/mm3 (150-400); RDW Coefficient Variation 12.6 % (11.7-14.2); RDW Standard Deviation 45.4 fL (35.1-46.3); Red Blood Cell Count 3.56 M/mm3 (3.80-5.20)
[2019-05-09 05:58] LABS: Bun/Creatinine Ratio 15.6 (12.0-20.0); Calcium, Blood 9.1 mg/dL (8.5-10.1); Creatinine, Blood 1.6 mg/dL (0.40-1.00); Potassium, Blood 3.1 mmol/L (3.5-5.5)
[2019-05-09 10:31] LABS: International Normalized Ratio 3.59; Prothrombin Time Results 33.9 Sec (9.7-11.5)
[2019-05-09 10:51] LABS: Source, Urine Clean Catch
[2019-05-09 11:00] LABS: Appearance, Urine Clear (Clear); Bilirubin, Urine Neg (Neg); Blood, Urine 2+ (Neg); Color, Urine Yellow (P-Yellow); Glucose Qualitative, Urine Neg (Neg); Ketones, Urine Neg (Neg); Leukocyte Esterase, Urine 3+ (Neg); Nitrite, Urine Neg (Neg); Protein, Urine 1+ (Neg); Specific Gravity, Urine 1.025 (1.003-1.022); Urobilinogen, Urine NORM (Normal)
[2019-05-09 11:16] LABS: Bacteria Many /hpf; Squamous Epithelial Cells Mod /hpf (Few)
--- NOTE | 2019-05-09 17:35 | NUR ---
SHIFT SUMMARY PT HAD JUST GOTTEN BACK TO SLEEP PRIOR TO SHIFT REPORT THIS AM. ADMITTED FOR UTI WITH AMS. PT WAKING UP WHEN P/T CAME IN TO WORK WITH HER. P/T ABLE TO GET PT UP AND WALKING WITH GAIT BELT AND FWW. PT ABLE TO WALK IN RM AND OUT TO BARBER A SHORT DISTANCE. PT THEN SAT UP IN CHAIR FOR SEVERAL HOURS, UNTIL AFTER LUNCH. PT'S CAME IN SOON AFTER BREAKFAST AND WAS AMAZED AT HIS BEING ABLE TO SIT IN CHAIR WELL WALKING AROUND. ALSO REPORTED PT PROBABLY UNABLE TO EAT MUCH FOR BREAKFAST D/T NOT HAVING HER DENTURES. PT DID MUCH BETTER AT LUNCH. ALSO BROUGHT IN PT'S GLASSES, WHICH P/T STATED WOULD HAVE BEEN HELPFUL WHEN AMBULATING THIS AM. PT ABLE TO GET TO [facility] THIS AM TO VOID. UA OBTAINED AND SENT PER ORDERS. NO FURTHER CHANGES THRU OUT THE DAY. PT RESTING QUIETLY THIS AFTERNOON. VERY QUIET SPOKEN D/T DEMENTIA. TEARFUL THIS AM, BEFORE CAME IN, SHE THOUGHT SHE WOULDN'T BE GOING HOME. CAREGIVER ALSO CAME IN TO CHECK ON PT AND ASSIST WITH LUNCH. CALL LT IN REACH. BED ALARM ON FOR SAFETY AND CHAIR ALARM ON WHEN OOB. NEEDED TO VOID THIS AM, ASSIST
--- NOTE | 2019-05-09 18:27 | NUR ---
ASSISTED PT OOB AND SITTING UP IN CHAIR FOR DINNER. PT MUCH MORE ALERT THIS EVENING THAN THIS AM. PT ABLE TO FEED HERSELF AND DOING WELL. PT REPORTED "MUCH BETTER THAN THIS MORNING". PT APPEARS TO FEEL BETTER AND IS MUCH MORE CHEERFUL AT THIS TIME. CHAIR ALARM ON FOR SAFETY.
[2019-05-10 05:03] LABS: International Normalized Ratio 3.39; Prothrombin Time Results 32.2 Sec (9.7-11.5)
--- NOTE | 2019-05-10 05:14 | NUR ---
SHIFT SUMMARY NO ACUTE EVENTS OVERNIGHT. PT IS ONLY ORIENTED TO SELF AND FAMILY. REPORTS BEING AT A FAMILY MEMBERS HOUSE, YEAR IS "" AND MONTH IS "AUGUST". BED ALARM IS ON FOR SAFETY, HOWEVER PT SLEEPS WELL THROUGH THE NIGHT AND IS NOT IMPULSIVE. DENIES PAIN OR DISCOMFORT. PLACED ON 1L VIA NC OVERNIGHT FOR O2 SATS IN THE HIGH 80s/LOW 90s. OKAY ON RA DURING THE DAY. NO OTHER CHANGES TO REPORT. WILL CONT TO MONITOR AND PROVIDE CARE UNTIL PRESUMED BY ONCOMING RN.
[2019-05-10 05:35] LABS: Bun/Creatinine Ratio 15.6 (12.0-20.0); Calcium, Blood 9.1 mg/dL (8.5-10.1); Creatinine, Blood 1.86 mg/dL (0.40-1.00); Potassium, Blood 3.5 mmol/L (3.5-5.5)
--- NOTE | 2019-05-10 17:13 | NUR ---
SHIFT SUMMARY PT AXO TO SELF, PLACE AND FOLLOWING DIRECTIONS. PHYSICAL THERAPY EVALUATED THIS SHIFT, SEE NOTE. PT DENIES PAIN, SOB AND NV. VSS. NO ACUTE CHANGES THIS SHIFT. LOST IV ACCESS. ANTIBIOTIC CHANGED TO PO PER DR FORD. BED IN LOW POSITION, CALL LIGHT WITHIN REACH, BED ALARM ON.
--- NOTE | 2019-05-10 18:30 | NUR ---
MED, PT'S SPOUSE HAS CONCERNS ABOUT PT'S DISCHARGE PLAN. HE STATES THAT HE ONLY HAS A CAREGIVER FOR HER FOR 7 HOURS/DAY ON WEEKDAYS AND NO HELP ON WEEKENDS. HE IS AFRAID THAT PT WILL FALL AGAIN AND IF THAT HAPPENS, HE STATES THAT HE WILL HAVE TO CALL THE AMBULANCE AND BRING HER BACK TO THE HOSPITAL. HE STATES THAT HE WANTS TO HAVE HER GO TO [facility] SHORT TERM BUT DOES NOT WANT HER TO GO TO ANOTHER FACILITY. PT'S SPOUSE'S NAME IS MED WHO HAS HEALTH CONCERNS OF HIS OWN. CHARGE NURSE, WESLEY PARADA RN, NOTIFIED OF THE 'S CONCERNS
[2019-05-11 05:15] LABS: International Normalized Ratio 2.58; Prothrombin Time Results 25.1 Sec (9.7-11.5)
[2019-05-11 05:28] LABS: Bun/Creatinine Ratio 15.1 (12.0-20.0); Calcium, Blood 9.7 mg/dL (8.5-10.1); Creatinine, Blood 1.92 mg/dL (0.40-1.00); Magnesium, Blood 2.2 mg/dL (1.6-2.4); Potassium, Blood 3.6 mmol/L (3.5-5.5)
--- NOTE | 2019-05-11 06:22 | NUR ---
SHIFT SUMMARY: Pt intermittently forgetful about where she is. Required a couple reminders she is in the hospital but recalled where she was on one occasion. Forgeful. Easily redirected. Grimacing and reports pain in upper back, states pain is tolerable but would like tylenol. Effective- sleeping after administration. Slept intermittently through the night. Not communicating needs using call button, staff have been checking in on her frequently. 02 94-96% on RA. No SOB observed at rest or during t/f from recliner to bed. Sleeps with HOB elevated 30 degrees. Bed low, call button in reach, frequent rounding, and staff attempts to anticipate pt needs.
--- NOTE | 2019-05-11 17:38 | NUR ---
SHIFT SUMMARY: PT IS A/O X1-2 WITH SIGNIFICANT CONFUSION. AT TIMES SHE IS ABLE TO MAKE HER NEEDS KNOWN. PT IS CONT AT TIMES AND INC AND USES THE BEDSIDE COMMODE WHEN SHE IS AWARE OF HER NEED TO VOID. PT NEEDS SET UP AND ASSIST FOR MEALS. PT IS ABLE TO TAKE HER PILLS WHOLE WITH A SPOON AND SIPS OF WATER BUT NEEDS CUEING THAT SHE IS TAKING HER PILLS. PT WAS P TO CHAIR THIS MORNING AND HAS BEEN RESTING IN BED THIS AFTERNOON. IT WAS REPORTED BY NIGHT NURSE THAT THE IS REQUESTING ASSISTANCE WITH DC PLANNING DUE TO HIM NOT BEING ABLE TO MEET ALL OF HER CARE NEEDS AT HOME, DR FORD WAS NOTIFIED OF THIS AND A MESSAGE WAS LEFT WITH THE TO DISCUSS DC PLANS BUT HE HAS YET TO CALL BACK. PT IS RESTING IN BED AND AHS HER CALL LIGHT IN REACH.
--- NOTE | 2019-05-12 05:01 | NUR ---
SHIFT SUMMARY PT REMAINS PLEASANTLY CONFUSED. EARLY IN THE SHIFT PT WAS ABLE TO TELL ME SHE WAS IN THE HOSPITAL BUT LATER IN THE EVENING PT WAS UNAWARE OF WHERE SHE WAS. REMAINED AT BEDSIDE THIS EVENING. NO ACUTE CHANGES. VITAL SIGNS STABLE. PT MAY REQUIRE PLACEMENT, REMAINING AT BEDSIDE TO SPEAK TO DOCTOR THIS AM. WILL CONTINUE TO MONITOR.
[2019-05-12 05:57] LABS: International Normalized Ratio 2.73; Prothrombin Time Results 26.4 Sec (9.7-11.5)
--- NOTE | 2019-05-12 16:56 | NUR ---
SHIFT SUMMARY: PT IS ALERT TO HERSELF AND FOLLOWING DIRECTION AND FAMILY AT TIMES. SHE REMIANS CONFUSED AT BASELINE. MET WITH CASE MANAGEMENT TODAY ABOUT PLACEMENT AT [facility]. PT WORKED WITH PT TODAY BUT HAS CHALLENES DUE TO CONFUSION AND FOLLOWING DIRECTIONS. HOME CARE WORKER AND SPENT MOST OF THE MORNING AT THE BEDSIDE. PT IS PLEASANT AND COOPERATIVE WITH CARE BUT NEEDS CUEING AND REDIRECTION R/T CONFUSION.
--- NOTE | 2019-05-13 04:29 | NUR ---
SHIFT SUMMARY: 78 Y/O FEMALE RESTED COMFORTABLY ALL SHIFT, PT AT BEGINNING OF SHIFT WAS ASSISTED BACK TO BED X 2 ASSIST, MUCH DIFFICULTY COMING TO STANDING POSITION AND PIVOTING TO BED, REQUIRED ALOT REDIRECTION PATIENT VERY CONFUSED AND ALERT TO PERSON ONLY, TOOK ALL MEDICATIONS WITH ASSISTANCE WITH DRINKING WATER FROM THIS NURSE HOLDING GLASS AND INSTRUCTING TO SUCK ON STRAW FOR WATER, NO PAIN OR NAUSEA NOTED, BED ALARM APPLIED, BED LOW POSITION, CALL LIGHT AT SIDE.
[2019-05-13 05:46] LABS: International Normalized Ratio 2.72; Prothrombin Time Results 26.3 Sec (9.7-11.5)
[2019-05-13] MEDS ORDERED: CEPH500 PO (10:57)
[2019-05-13] MEDS ORDERED: Vsl#3 Capsule1 EACH PO (10:58)
--- NOTE | 2019-05-13 14:34 | NUR ---
DISCHARGE SUMMARY PT DISCHARGED TO HOME. PT LEFT ROOM VIA WHEELCHAIR WITH TRANSPORTER ESCORT AT 1430. BELONGINGS RETURNED AND NO IV IN PLACE AT TIME OF DC. PT'S SPOUSE CALLED AND DISCHARGE INSTRUCTIONS COMPLETED OVER THE PHONE. HE AGREES TO TAKE PATIENT TO DR LOPEZ ON 05/11/19 AT 1030. SPOUSE ENCOURAGED TO CALL MEDICAL FLOOR IF HE HAS QUESTIONS REGARDING DC.
== END 2019-05-13 14:30 | disposition home or self-care (01) | DRG 189 ==
LOC: ER 13:45 → MEDS 22:05 → ENPENDDIS 05-13 10:00 → MEDS 05-13 14:30
PROVIDERS: Emergency Medicine; Internal Medicine; Nurse Practitioner Acute Care; Pharmacist; ADMIT Internal Medicine
DX: J96.01 Acute respiratory failure with hypoxia (principal); G92 Toxic encephalopathy; N39.0 Urinary tract infection, site not specified; J98.11 Atelectasis; N18.4 Chronic kidney disease, stage 4 (severe); W19.XXXA Unspecified fall, initial encounter; E86.0 Dehydration; J44.9 Chronic obstructive pulmonary disease, unspecified; G30.9 Alzheimer's disease, unspecified; F02.80 Dementia in other diseases classified elsewhere, unspecified severity, without behavioral disturbance, psychotic disturbance, mood disturbance, and anxiety; I12.9 Hypertensive chronic kidney disease with stage 1 through stage 4 chronic kidney disease, or unspecified chronic kidney disease; R29.6 Repeated falls; B95.61 Methicillin susceptible Staphylococcus aureus infection as the cause of diseases classified elsewhere; D69.6 Thrombocytopenia, unspecified; D63.1 Anemia in chronic kidney disease; F44.4 Conversion disorder with motor symptom or deficit; Z86.718 Personal history of other venous thrombosis and embolism; Z87.891 Personal history of nicotine dependence; Z88.0 Allergy status to penicillin; Z88.2 Allergy status to sulfonamides; Z88.8 Allergy status to other drugs, medicaments and biological substances; Z79.01 Long term (current) use of anticoagulants; Z79.899 Other long term (current) drug therapy
CPT/HCPCS: 36415; 70450; 71046; 80048; 80053; 81001; 83735; 84145; 85025; 85610; 87077; 87086; 87147; 87185; 87186; 93005; 93010; 94760; 97116; 97162; 97165; 97530; 97535; 99285-25; A9270; J1956; J7050

== ENCOUNTER 2019-08-28 19:09 | Emergency (ER) | payer OTHER ==
[~2019-08-28] VITALS: Ht 157.5 cm; Wt 77.1 kg
[~2019-08-28 19:09] MED LIST changes: +AMLODIPINE BES2.5 MG PO; +Amlodipine Bes2.5 MG PO; +GABA100 PO; +Halobetasol Pro15 GM TOP; +IRON150C PO; +LORCET 5-325 M1 EACH PO; +Nitrofurantoin100 M1 PO; +Vsl#3 Capsule1 EACH PO; +Zantac150 MG PO
[2019-08-28] MEDS ORDERED: KLOR-CON M1010 MEQ PO (19:54)
[2019-08-28] MEDS ORDERED: FURO40 PO (19:55)
[2019-08-28] MEDS ORDERED: PRAM.5 PO (19:55)
[2019-08-28] MEDS ORDERED: BIOTIN2500 MCG PO (19:55)
[2019-08-28] MEDS ORDERED: VITAMIN D32000 UNI3 PO (19:56)
[2019-08-28] MEDS ORDERED: OMEPRAZOLE20 MG PO (19:57)
[2019-08-28 21:10] LABS: BASOPHILS ABSOLUTE AUTO 0.04 K/mm3 (0.00-0.23); BASOPHILS PERCENT AUTO 0 % (0-2); EOSINOPHILS ABSOLUTE AUTO 0.18 K/mm3 (0.00-0.68); EOSINOPHILS PERCENT AUTO 2 % (0-6); Hematocrit 38.1 % (33.0-51.0); IMMATURE GRAN ABSOLUTE AUTO 0.04 K/mm3 (0.00-0.10); IMMATURE GRAN PERCENT AUTO 0 % (0-1); LYMPHOCYTES PERCENT AUTO 4 % (21-46); MONOCYTES ABSOLUTE AUTO 0.65 K/mm3 (0.16-1.47); MONOCYTES PERCENT AUTO 7 % (4-13); Mean Corpuscular HGB 31.1 pg (26.0-34.0); Mean Corpuscular HGB Conc 31.5 g/dL (31.5-36.5); Mean Corpuscular Volume 99 fL (80-100); Mean Platelet Volume 10.4 fL (9.1-12.4); NEUTROPHILS ABSOLUTE AUTO 7.69 K/mm3 (1.96-9.15); NEUTROPHILS PERCENT AUTO 86 % (41-73); Platelet Count 164 K/mm3 (150-400); RDW Coefficient Variation 12.9 % (11.7-14.2); RDW Standard Deviation 46.2 fL (35.1-46.3); Red Blood Cell Count 3.86 M/mm3 (3.80-5.20)
[2019-08-28 21:22] LABS: Source, Urine Catheter
[2019-08-28 21:25] LABS: International Normalized Ratio 1.23
[2019-08-28 21:28] LABS: Bilirubin, Urine Neg (Neg); Blood, Urine 2+ (Neg); Glucose Qualitative, Urine Neg (Neg); Ketones, Urine 1+ (Neg); Leukocyte Esterase, Urine Neg (Neg); Nitrite, Urine Neg (Neg); Protein, Urine 1+ (Neg); Urobilinogen, Urine NORM (Normal)
[2019-08-28 21:29] LABS: Albumin, Blood 2.9 g/dL (3.4-5.0); Albumin/Globulin Ratio 0.7 (0.8-1.8); Bilirubin, Total 0.7 mg/dL (0.1-1.0); Bun/Creatinine Ratio 12.7 (12.0-20.0); Calcium, Blood 9.2 mg/dL (8.5-10.1); Creatinine, Blood 1.89 mg/dL (0.40-1.00); Globulin, Blood 4.3 g/dL (2.2-4.0); Potassium, Blood 3.7 mmol/L (3.5-5.5); Total Protein, Blood 7.2 g/dL (6.4-8.2)
[2019-08-28 21:30] LABS: Appearance, Urine Hazy (Clear); Color, Urine Yellow (P-Yellow)
[2019-08-28 21:38] LABS: Bacteria Few /hpf; Mucus Light (0-Heavy); Red Blood Cells, Urine 0-2 /hpf (0-2); Squamous Epithelial Cells Rare /hpf (Few); White Blood Cells, Urine 0-2 /hpf (0-5)
== END 2019-08-28 22:58 | disposition home or self-care (01) ==
LOC: ER 19:09
PROVIDERS: Emergency Medicine
DX: S09.90XA Unspecified injury of head, initial encounter (principal); I12.9 Hypertensive chronic kidney disease with stage 1 through stage 4 chronic kidney disease, or unspecified chronic kidney disease; N18.9 Chronic kidney disease, unspecified; F03.90 Unspecified dementia, unspecified severity, without behavioral disturbance, psychotic disturbance, mood disturbance, and anxiety; Z88.0 Allergy status to penicillin; Z88.2 Allergy status to sulfonamides; Z88.1 Allergy status to other antibiotic agents; Z79.899 Other long term (current) drug therapy; Z79.01 Long term (current) use of anticoagulants; M19.90 Unspecified osteoarthritis, unspecified site; Z87.891 Personal history of nicotine dependence; W19.XXXA Unspecified fall, initial encounter
CPT/HCPCS: 36415; 51701; 70450; 71045; 80053; 81001; 85025; 85610; 85730; 99284-25

== ENCOUNTER 2019-08-30 13:30 | Inpatient (IN) | payer OTHER ==
[~2019-08-30] VITALS: Ht 162.6 cm; Wt 65.8 kg
[~2019-08-30 13:30] MED LIST changes: +BIOTIN2500 MCG PO; +KLOR-CON M1010 MEQ PO; +VITAMIN D32000 UNI3 PO
[2019-08-30] MEDS ORDERED: FERSU300 PO (14:12)
[2019-08-30 14:46] LABS: BASOPHILS ABSOLUTE AUTO 0.03 K/mm3 (0.00-0.23); BASOPHILS PERCENT AUTO 0 % (0-2); EOSINOPHILS ABSOLUTE AUTO 0.01 K/mm3 (0.00-0.68); EOSINOPHILS PERCENT AUTO 0 % (0-6); Hematocrit 39.7 % (33.0-51.0); Hemoglobin 12.7 g/dL (11.5-16.0); IMMATURE GRAN ABSOLUTE AUTO 0.11 K/mm3 (0.00-0.10); IMMATURE GRAN PERCENT AUTO 1 % (0-1); LYMPHOCYTES PERCENT AUTO 5 % (21-46); MONOCYTES ABSOLUTE AUTO 0.84 K/mm3 (0.16-1.47); MONOCYTES PERCENT AUTO 6 % (4-13); Mean Corpuscular HGB 31.1 pg (26.0-34.0); Mean Corpuscular Volume 97 fL (80-100); Mean Platelet Volume 10.6 fL (9.1-12.4); NEUTROPHILS ABSOLUTE AUTO 11.83 K/mm3 (1.96-9.15); NEUTROPHILS PERCENT AUTO 88 % (41-73); Platelet Count 144 K/mm3 (150-400); RDW Coefficient Variation 12.4 % (11.7-14.2); RDW Standard Deviation 44.6 fL (35.1-46.3); Red Blood Cell Count 4.09 M/mm3 (3.80-5.20); White Blood Cell Count 13.52 K/mm3 (4.00-11.30)
[2019-08-30 15:19] LABS: Alanine Aminotransfer (ALT/SGP 10 U/L (12-78); Albumin, Blood 2.7 g/dL (3.4-5.0); Albumin/Globulin Ratio 0.6 (0.8-1.8); Alk Phos 83 U/L (50-136); Anion Gap 11 mmol/L (6-16); Aspartate Aminotrans (AST/SGOT 12 U/L (12-37); Bilirubin, Total 1.2 mg/dL (0.1-1.0); Blood Urea Nitrogen 23 mg/dL (8-24); Bun/Creatinine Ratio 13.8 (12.0-20.0); CO2, Blood 25 mmol/L (21-32); Calcium, Blood 9.2 mg/dL (8.5-10.1); Chloride, Blood 104 mmol/L (98-108); Creatinine, Blood 1.67 mg/dL (0.40-1.00); Globulin, Blood 4.7 g/dL (2.2-4.0); Glomerular Filtration Rate 32 (60-); Glucose, Blood 104 mg/dL (70-99); Potassium, Blood 3.7 mmol/L (3.5-5.5); Sodium, Blood 140 mmol/L (136-145); Total Protein, Blood 7.4 g/dL (6.4-8.2); Troponin I <0.015 ng/mL (0.000-0.040)
[2019-08-30 16:55] LABS: Source, Urine Catheter
[2019-08-30 16:58] LABS: Blood, Urine 4+ (Neg); Glucose Qualitative, Urine Neg (Neg); Ketones, Urine 2+ (Neg); Leukocyte Esterase, Urine 2+ (Neg); Nitrite, Urine Pos (Neg); Protein, Urine 2+ (Neg); Urobilinogen, Urine 2+ (Normal)
[2019-08-30 17:04] LABS: Appearance, Urine Hazy (Clear); Bilirubin, Urine 1+ (Neg); Color, Urine Yellow (P-Yellow)
[2019-08-30 17:08] LABS: Amorphous Mod (0-Heavy); Bacteria Many /hpf; Mucus Light (0-Heavy); Squamous Epithelial Cells Rare /hpf (Few)
[2019-08-30] MEDS ORDERED: ALBU2.5V5 NEB (17:28)
[2019-08-30] MEDS ORDERED: Halobetasol Pro15 GM TOP (18:04)
[2019-08-30 18:52] LABS: International Normalized Ratio 1.97; Prothrombin Time Results 20.3 Sec (9.7-11.5)
--- NOTE | 2019-08-31 01:36 | NUR ---
78 yr old female admitted to the floor from the ED with Dx of Sepsis, UTI and SOB, especially with exertion. ED RN reported pt had fallen at home and was having difficulties ambulating and that her family also noted a change in mental abilities. IV antibiotics infusing as per MAR. Unable to complete her med history as she is a poor historian. HOB elevated. Currently resting quietly. NPO. Call light in reach.
[2019-08-31 06:02] LABS: BASOPHILS ABSOLUTE AUTO 0.03 K/mm3 (0.00-0.23); BASOPHILS PERCENT AUTO 0 % (0-2); EOSINOPHILS PERCENT AUTO 0 % (0-6); Hematocrit 36.2 % (33.0-51.0); Hemoglobin 11.5 g/dL (11.5-16.0); IMMATURE GRAN ABSOLUTE AUTO 0.17 K/mm3 (0.00-0.10); IMMATURE GRAN PERCENT AUTO 1 % (0-1); LYMPHOCYTES ABSOLUTE AUTO 0.21 K/mm3 (0.84-5.20); LYMPHOCYTES PERCENT AUTO 2 % (21-46); MONOCYTES ABSOLUTE AUTO 0.93 K/mm3 (0.16-1.47); MONOCYTES PERCENT AUTO 7 % (4-13); Mean Corpuscular HGB 31.3 pg (26.0-34.0); Mean Corpuscular HGB Conc 31.8 g/dL (31.5-36.5); Mean Corpuscular Volume 98 fL (80-100); Mean Platelet Volume 10.7 fL (9.1-12.4); NEUTROPHILS ABSOLUTE AUTO 13.05 K/mm3 (1.96-9.15); NEUTROPHILS PERCENT AUTO 91 % (41-73); Platelet Count 160 K/mm3 (150-400); RDW Coefficient Variation 12.7 % (11.7-14.2); RDW Standard Deviation 46.2 fL (35.1-46.3); Red Blood Cell Count 3.68 M/mm3 (3.80-5.20); White Blood Cell Count 14.39 K/mm3 (4.00-11.30)
[2019-08-31 06:17] LABS: International Normalized Ratio 2.43
[2019-08-31 06:29] LABS: Alanine Aminotransfer (ALT/SGP <6 U/L (12-78); Albumin, Blood 2.1 g/dL (3.4-5.0); Albumin/Globulin Ratio 0.5 (0.8-1.8); Alk Phos 78 U/L (50-136); Anion Gap 6 mmol/L (6-16); Aspartate Aminotrans (AST/SGOT 11 U/L (12-37); Blood Urea Nitrogen 24 mg/dL (8-24); Bun/Creatinine Ratio 15.7 (12.0-20.0); CO2, Blood 28 mmol/L (21-32); Calcium, Blood 8.7 mg/dL (8.5-10.1); Chloride, Blood 107 mmol/L (98-108); Creatinine, Blood 1.53 mg/dL (0.40-1.00); Globulin, Blood 4.4 g/dL (2.2-4.0); Glomerular Filtration Rate 35 (60-); Glucose, Blood 115 mg/dL (70-99); Potassium, Blood 4.4 mmol/L (3.5-5.5); Sodium, Blood 141 mmol/L (136-145); Total Protein, Blood 6.5 g/dL (6.4-8.2)
[2019-08-31 06:45] LABS: Prothrombin Time Results 24.7 Sec (9.7-11.5)
--- NOTE | 2019-08-31 17:15 | NUR ---
SHIFT SUMMARY- PT RESPONDS TO VERBAL STIMULI. HER SPEECH IS QUIET AND DIFFICULT TO UNDERSTAND. HER AND SISTER WERE AT BEDSIDE INTERMITENTLY THROUGHOUT THIS SHIFT. PT SLEPT MUCH OF THIS SHIFT. PROVIDER DISCUSSED CODE STATUS WITH THE FAMILY AND SHE WAS CHANGED TO DNR. PALATIVE CARE CONSULT IN PLACE THEY WILL COME TOMORROW AFTER SPEECH THERAPY CONSULT. PT LUNG SOUNDS ARE CORSE WITH CRACKLES, RT IS PROVIDING TREATMENT. PT IS NPO EXCEPT FOR MEDICATION. SHE HAS DIFFICULTY SWALLOWING THE PILLS ON APPLESAUSE. PROVIDED ORAL CARE.
--- NOTE | 2019-08-31 20:45 | NUR ---
On med tele, teletypesetter heightened that pt went up to the 120's svt, and is remaining at that. call placed to MD internal communications intern, message left for call back.
--- NOTE | 2019-09-01 01:12 | NUR ---
NOTED HEART RATE HAD INCREAED INTO THE 120'S - SEE PREVIOUS NOTE PER SALES LEAD GENERATOR INFO. PT NPO AND HAD NO MAINTENANCE IVF INFUSING. LUNG SOUNDS DIMINISHED BUT NO NOTE CRACKLES. INCONT OF URINE X 3 THIS SHIFT OF THIS WRITING. CALL PLACED TO BULK TRUCK DRIVER MD, ORDERS FOR LR AT 100 ML/HR OBTAINED. ORAL CARE DONE INTERMITTENTLY THIS SHIFT. CALL LIGHT IN REACH. O2 PER NC. HOB ELEVATED.
--- NOTE | 2019-09-01 03:28 | NUR ---
PT RESTING QUIETLY WITH OCCASIONAL COUGH. IVF OF LR INFUSING AT 100 ML/HR PER MD ORDERS. HR DOWN TO 111 - SEE DOC FLOW SHEETS FOR DETAILS. PT INCONT OF URINE EARLIER, WHEN ASKED, STATED SHE FELT BETTER. BELLE CONTINUE TO MONITOR. CALL LIGHT IN REACH.
[2019-09-01 06:13] LABS: Hematocrit 33.1 % (33.0-51.0); Hemoglobin 10.5 g/dL (11.5-16.0); Mean Corpuscular HGB Conc 31.7 g/dL (31.5-36.5); Mean Corpuscular Volume 98 fL (80-100); Platelet Count 154 K/mm3 (150-400); RDW Coefficient Variation 13.1 % (11.7-14.2); RDW Standard Deviation 47.3 fL (35.1-46.3); Red Blood Cell Count 3.39 M/mm3 (3.80-5.20); White Blood Cell Count 13.47 K/mm3 (4.00-11.30)
[2019-09-01 06:32] LABS: Albumin, Blood 1.8 g/dL (3.4-5.0); Anion Gap 7 mmol/L (6-16); Blood Urea Nitrogen 28 mg/dL (8-24); Bun/Creatinine Ratio 18.5 (12.0-20.0); CO2, Blood 25 mmol/L (21-32); Calcium, Blood 8.5 mg/dL (8.5-10.1); Chloride, Blood 114 mmol/L (98-108); Creatinine, Blood 1.51 mg/dL (0.40-1.00); Glomerular Filtration Rate 35 (60-); Glucose, Blood 120 mg/dL (70-99); Phosphorus, Blood 1.9 mg/dL (2.5-4.9); Potassium, Blood 3.4 mmol/L (3.5-5.5); Sodium, Blood 146 mmol/L (136-145)
[2019-09-01 07:05] LABS: BAND PERCENT MAN 20 % (0-8); BASOPHILS PERCENT MAN 0 % (0-2); EOSINOPHILS PERCENT MAN 0 % (0-6); LYMPHOCYTES ABSOLUTE MAN 0.26 K/mm3 (0.84-5.20); LYMPHOCYTES PERCENT MAN 2 % (21-46); MONOCYTES ABSOLUTE MAN 0.26 K/mm3 (0.16-1.47); MONOCYTES PERCENT MAN 2 % (4-13); NEUTROPHILS ABSOLUTE MAN 12.93 K/mm3 (1.96-9.15); SEG NEUTROPHILS PERCENT MAN 76 % (41-73); TOTAL CELLS COUNTED 100
[2019-09-01 07:12] LABS: Prothrombin Time Results 49.2 Sec (9.7-11.5)
[2019-09-01 07:24] LABS: International Normalized Ratio 5.04
[2019-09-01] MEDS ORDERED: GABA100 PO (13:30)
[2019-09-01] MEDS ORDERED: BENZ100A PO (13:30)
--- NOTE | 2019-09-01 18:32 | NUR ---
SHIFT SUMMARY. PT LETHARGIC THIS AM, BECOMING MORE ALERT AFTER WORKING WITH PHYSICAL THERAPY. PT ABLE TO PARTICIPATE IN ST EVAL, PT ATE LUNCH WITH FEEDING ASSISTANCE. PT ORIENTATED TO FAMILY, HX DEMENTIA. PT DENIES PAIN, N/V. PT SOB WITH EXERTION. CONTINUES WITH 2L O2 NC. FAMILY AT BEDSIDE MOST OF THE SHIFT, AGREE WITH PLAN OF CARE. NO NEW CHANGES OR CONCERNS.
--- NOTE | 2019-09-02 02:16 | NUR ---
SOME RESTLESSNESS NOTED AT INTERVALS, UPON ENTERING ROOM, NOTED PT TALKING TO SELF. WHEN ASKED IF SHE WAS OK, SHE SAID YES. SEEMED MORE ATTENTIVE TO QUESTIONS THIS SHIFT COMPARED TO THAT OF 24 HRS PREVIOUS. IVF OF D5W INFUSING AT 75 ML/HR. INCONT OF URINE AND WAS CHANGED. SOMEWHAT RESISTANT TO BEING REPOSITIONED. RAILS UP X 3. CALL LIGHT IN REACH.
[2019-09-02 05:49] LABS: BASOPHILS ABSOLUTE AUTO 0.06 K/mm3 (0.00-0.23); BASOPHILS PERCENT AUTO 0 % (0-2); EOSINOPHILS ABSOLUTE AUTO 0.01 K/mm3 (0.00-0.68); EOSINOPHILS PERCENT AUTO 0 % (0-6); Hemoglobin 9.9 g/dL (11.5-16.0); IMMATURE GRAN ABSOLUTE AUTO 0.12 K/mm3 (0.00-0.10); IMMATURE GRAN PERCENT AUTO 1 % (0-1); LYMPHOCYTES ABSOLUTE AUTO 0.24 K/mm3 (0.84-5.20); LYMPHOCYTES PERCENT AUTO 1 % (21-46); MONOCYTES ABSOLUTE AUTO 0.57 K/mm3 (0.16-1.47); MONOCYTES PERCENT AUTO 3 % (4-13); Mean Corpuscular HGB 30.9 pg (26.0-34.0); Mean Corpuscular HGB Conc 31.9 g/dL (31.5-36.5); Mean Corpuscular Volume 97 fL (80-100); Mean Platelet Volume 11.2 fL (9.1-12.4); NEUTROPHILS ABSOLUTE AUTO 15.99 K/mm3 (1.96-9.15); NEUTROPHILS PERCENT AUTO 94 % (41-73); Platelet Count 166 K/mm3 (150-400); RDW Coefficient Variation 13.5 % (11.7-14.2); RDW Standard Deviation 48.5 fL (35.1-46.3); White Blood Cell Count 16.99 K/mm3 (4.00-11.30)
[2019-09-02 06:18] LABS: Magnesium, Blood 1.9 mg/dL (1.6-2.4)
[2019-09-02 06:23] LABS: Albumin, Blood 1.6 g/dL (3.4-5.0); Anion Gap 7 mmol/L (6-16); Blood Urea Nitrogen 30 mg/dL (8-24); Bun/Creatinine Ratio 19.4 (12.0-20.0); CO2, Blood 25 mmol/L (21-32); Calcium, Blood 8.4 mg/dL (8.5-10.1); Chloride, Blood 112 mmol/L (98-108); Creatinine, Blood 1.55 mg/dL (0.40-1.00); Glomerular Filtration Rate 34 (60-); Glucose, Blood 122 mg/dL (70-99); Phosphorus, Blood 2.4 mg/dL (2.5-4.9); Potassium, Blood 3.2 mmol/L (3.5-5.5); Sodium, Blood 144 mmol/L (136-145)
[2019-09-02 06:33] LABS: International Normalized Ratio 5.89
--- NOTE | 2019-09-02 06:42 | NUR ---
LAB CALLED WITH INR 5.89. CALL PLACED TO , ORDERS TO HOLD COUMADIN. PHARMACY NOTIFIED.
--- NOTE | 2019-09-02 15:28 | NUR ---
Met with patients and her long time caregiver. Review of pt decline in swallow and mentation and prognosis pt has a FAST score of 7e. We reviewed hospice care, aspiration and prognosis and suffering. Family is understanding of the need for hospice. They will speak with family and meet tomorrow. She is a DNR and they will do new polst tomorrow if hospice chosen.
--- NOTE | 2019-09-02 18:05 | NUR ---
SHIFT SUMMARY. ALERT, ORIENTATED TO SELF AND FAMILY, CONFUSED. PT CONTINUES WITH MOIST NON PRODUCTIVE COUGH, 2L O2 NC WHICH PT SOMETIMES REMOVES. IV POSTASSIUM PHOSPHATE GIVEN THIS AM. POOR MEAL INTAKE THIS SHIFT. UP TO CHAIR FOR BREAKFAST AND LUNCH, ORAL CARE COMPLETED BY DIRECTOR OF ATHLETICS AFTER EACH MEAL. FAMILY IN TO VISIT INTERMITTENTLY. CASE MANAGEMENT REPORTED THAT THEY SPOKE WITH PT'S FAMILY AND ARE CONSIDERING HOSPICE. NO OTHER CHANGES OR CONCERNS.
--- NOTE | 2019-09-03 04:10 | NUR ---
WAKENED AT INTERVALS FOR INCONTINENCE CHANGES. CONTINUES TO COMPLAIN OF DISCOMFORT WHEN REPOSITIONED. BREATH SOUNDS CONGESTED - RT ADMINISTERED TREATMENTS - SEE RT DOCUMENTATION FOR DETAILS. ORAL CARE GIVEN AT INTERVALS WELL. IVF OF NS AND ANTIBIOTICS ADMINISTERED PER SEP - SEE SEP FOR DETAILS. CALL LIGHT IN REACH. RAILS UP X 3.
--- NOTE | 2019-09-03 17:53 | NUR ---
Initial spiritual care note: Pt was alone in room and appears restless. She responds with one word answers, however, she does not appear lucid. She appears to be nearing end-of-life. Conferenced with Carlos Brar, palliative care RN, regarding symptom management. Sat at bedside and held Mrs. Dickinson's hand for awhile. Prayed for pt and family. I will remain available.
--- NOTE | 2019-09-03 18:26 | NUR ---
SUMMARY PT RESTING IN BED QUIETLY, WAKES EASILY, CONFUSED, IS RESISTANT TO CARES AT TIMES, WILL YELL OUT, PLAN IS TO DC ON HOSPICE SUNDAY, FAMILY HAS BEEN IN TO VISIT, NO ACUTE CHANGES, WILL CONT TO MONITOR
--- NOTE | 2019-09-03 20:00 | NUR ---
PATIENT DOES NOT APPEAR TO BE UNCOMFORTABLE OR ANXIOUS UPON INITIAL ENCOUNTER. HOWEVER, SHE DID REFUSE (SPIT OUT ) PROBIOTIC IN BOTH APPLESAUCE AND PUDDING. ALSO, REFUSED TO ALLOW POLICE PATROL LIEUTENANT TO GET VITALS. WILL TRY AGAIN LATER IN EVENING. BED ALARM ON, BED LOCKED IN LOW POSITION, SOFT MUSIC ON IN ROOM FOR PATIENT.
--- NOTE | 2019-09-03 20:18 | NUR ---
PT HAS REFUSED TO ALLOW ME TO CHECK VITAL SIGNS
--- NOTE | 2019-09-03 22:58 | NUR ---
PT STILL REFUSING CARE
--- NOTE | 2019-09-04 00:18 | NUR ---
PT AGAIN REFUSED CARE
--- NOTE | 2019-09-04 03:39 | NUR ---
MACHINE TRY OUT SETTER SUMMARY Patient got very little if any sleep overnight. IM dose of haldol per emar worked slightly, relaxing the patient enough for her to allow a bed and brief change, and a set of vital signs. Leora still was resistive to care, but did allow staff to get her cleaned up. Actually fell asleep for a short while after care. Vital signs stable, 02 sat on 2 liters was 88%. bumped to 3 liters for comfort. harsh loose cough, patient swallows sputum which i think makes her cough even more as her neck is constantly extended.
--- NOTE | 2019-09-04 17:37 | NUR ---
met [facility] family to review care polst compled and porcessed. plan is home tomorrow on hospice. Review of symptoms with nursing
--- NOTE | 2019-09-04 17:45 | NUR ---
SUMMARY PT CHANGED TO COMFORT CARE, FAMILY HAS BEEN IN AND OUT OF THE ROOM T/O THE DAY, PT MED PER EMAR FOR COMFORT, PLAN TO DC IN AM, WILL CONT TO MONITOR
--- NOTE | 2019-09-05 07:19 | NUR ---
MULTIPLE GAMES DEALER SUMMARY slept well after receiving hs dose of roxycodone liquid. Daughter stayed with Leora overnight. Pt started rattling/gurgling intermittantly around 2200. Gave Atropine gtts sublinqually without any response at all. Scopalamine patch placed behind left ear with only minimal positive results. Patient was then repositioned and head placed where her neck wasn't so hyperextended. This seemed to help the most for the moment. Incont once. Allison care given, lotion applied and all bedding changed. Daughter excited about bringing Leora home.
[2019-09-05] MEDS ORDERED: Tylenol Su160 MG/5 M PO (09:57)
[2019-09-05] MEDS ORDERED: MORP20L SL (09:58)
[2019-09-05] MEDS ORDERED: ATROPINE 0.01%-10 ML SL (09:58)
[2019-09-05] MEDS ORDERED: Transderm-Scop1 EACH TD (09:59)
[2019-09-05] MEDS ORDERED: ONDA4ODT MM (09:59)
--- NOTE | 2019-09-05 11:08 | NUR ---
SUMMARY/DISCHARGE PT DISCHARGED TO HOME ON HOSPICE, FAMILY PRESENT WHEN GURNEY TRANSPORT HERE TO [facility] AND FORMER THE PT
== END 2019-09-05 10:44 | disposition hospice, home (50) | DRG 871 ==
LOC: ER 13:30 → MEDS 17:46 → ER 19:37 → MEDS 19:48
PROVIDERS: Emergency Medicine; Internal Medicine; Physician Assistant; ADMIT Internal Medicine
DX: A41.51 Sepsis due to Escherichia coli [E. coli] (principal); G92 Toxic encephalopathy; J96.21 Acute and chronic respiratory failure with hypoxia; J69.0 Pneumonitis due to inhalation of food and vomit; N17.9 Acute kidney failure, unspecified; E87.0 Hyperosmolality and hypernatremia; N39.0 Urinary tract infection, site not specified; Z51.5 Encounter for palliative care; Z87.891 Personal history of nicotine dependence; G30.9 Alzheimer's disease, unspecified; F02.80 Dementia in other diseases classified elsewhere, unspecified severity, without behavioral disturbance, psychotic disturbance, mood disturbance, and anxiety; N18.3 Chronic kidney disease, stage 3 (moderate); I12.9 Hypertensive chronic kidney disease with stage 1 through stage 4 chronic kidney disease, or unspecified chronic kidney disease; R13.10 Dysphagia, unspecified; Z79.01 Long term (current) use of anticoagulants; E83.39 Other disorders of phosphorus metabolism; Z66 Do not resuscitate
CPT/HCPCS: 36415; 70450; 71046; 74176; 80053; 80069; 81001; 83605; 83735; 83880; 84145; 84484; 85025; 85610; 87040; 87077; 87086; 87186; 92526; 92610; 93005; 93010; 94640; 94760; 96361; 96365; 96375; 97110; 97162; 97166; 97530; 97535; 99285-25; J0456; J0696; J1630; J1956; J7030; J7050; J7060; J7070; J7120